=== PATIENT | female | born 1985 | race Asian ===

== ENCOUNTER 2018-12-09 08:59 | Outpatient (CLI) | payer BC ==
--- NOTE | 2018-12-09 09:42 | ULT ---
EXAM: Abdominal ultrasound PROVIDED CLINICAL HISTORY: Hepatitis B COMPARISON: None FINDINGS: Visualized portions of the pancreas, IVC and aorta appear normal. Liver demonstrates no mass or intrahepatic biliary ductal dilatation. Common duct is nondilated. Gallbladder demonstrates no stones, wall thickening or pericholecystic fluid. Kidneys demonstrate no hydronephrosis or solid mass. Spleen is not enlarged and demonstrates no focal abnormality. IMPRESSION: Unremarkable abdominal ultrasound.
== END 2018-12-09 09:00 | disposition home or self-care (01) ==
LOC: SCSULT 08:59
PROVIDERS: ATTEND Internal Medicine
DX: B18.1 Chronic viral hepatitis B without delta-agent (principal)
CPT/HCPCS: 76700